=== PATIENT | male | born 1995 | race Caucasian/White ===

== ENCOUNTER 2019-07-30 23:57 | Emergency (ER) | payer BC ==
--- NOTE | 2019-07-31 00:15 | ED Physician Documentation ---
PD HPI SKIN - Stated complaint Stated Complaint: BUMP ON TRUNK - Chief complaint Chief Complaint: Wound - History obtained from History obtained from: Patient - History of Present Illness Timing - onset: How many days ago (several) Timing - duration: Days Timing - details: Gradual onset, Still present (has noted some tenderness, swelling, mild redness in tailbone area c/w pilonidal cyst he had in the past. Had I&D of it in the past. Pain worse today.) Location: Other (tailbone area) Associated symptoms: No: Fever, Myalgias, N/V/D Similar symptoms before: Diagnosis (pilonidal cyst with infection) Recently seen: Not recently seen Review of Systems Constitutional: denies: Fever, Chills GI: denies: Abdominal Pain, Nausea, Vomiting, Constipation, Diarrhea PD PAST MEDICAL HISTORY - Past Medical History Cardiovascular: None Respiratory: None Neuro: None Endocrine/Autoimmune: None - Present Medications Home Medications: Ambulatory Orders Medication Instructions Recorded Confirmed Naproxen 500 mg PO BID #20 tablet 07/31/19 Oxycodone HCl/Acetaminophen 1 - 2 each PO Q6H PRN #14 tablet 07/31/19 [Percocet 5-325 mg Tablet] Sulfamethox/Trimeth 800/160 1 each PO BID #14 tablet 07/31/19 [Bactrim Ds 800/160] - Allergies Allergies/Adverse Reactions: Allergies Allergy/AdvReac Type Severity Reaction Status Date / Time No Known Drug Allergies Allergy Verified 07/31/19 00:07 PD ED PE NORMAL - Vitals Vital signs reviewed: Yes - General General: Alert and oriented X 3, Well developed/nourished, Other (appears uncomfortable due to tailbone pain. ) - Abdomen Abdomen: Soft, Non tender - Back Back: Other (he is tender at coccygeal area with mild swelling, redness and marked tenderness right of midline just at upper gluteal. No perirectal swelling nor tender. Bedside U/S by me showed local swelling with minimal area of fluid localized there (1-2 mm). ) - Derm Derm: Warm and dry. No: Normal color (redness of skin locally at tender area. ) Results - Vitals Vitals: Vital Signs - 24 hr 07/31/19 07/31/19 07/31/19 00:04 00:16 00:20 Temperature 36.6 C Heart Rate 78 Respiratory 18 16 17 Rate Blood Pressure 178/83 H O2 Saturation 99 07/31/19 01:43 Temperature Heart Rate 65 Respiratory 18 Rate Blood Pressure 155/82 H O2 Saturation 98 Oxygen O2 Source Room air PD MEDICAL DECISION MAKING - ED course Complexity details: considered differential (at this time, appears local swelling with some cellulitic changes but no fluid collection (1-2 mm by bedside U/S). No cause for I&D at this time. ), d/w patient Departure - Departure Disposition: Home, Self Care Clinical Impression: Pilonidal cyst with abscess Condition: Stable Record reviewed to determine appropriate education?: Yes Instructions: ED Cyst Pilonidal Infec Abx Only Follow-Up: LUIS MISTRY ARNP [Primary Care Provider] - Prashanth Bauer MD [Provider Admit Priv/Credential] - Prescriptions: Naproxen 500 mg PO BID #20 tablet Oxycodone HCl/Acetaminophen [Percocet 5-325 mg Tablet] 1 - 2 each PO Q6H PRN #14 tablet PRN Reason: pain Sulfamethox/Trimeth 800/160 [Bactrim Ds 800/160] 1 each PO BID #14 tablet Comments: Warm moist towels or soaking foot the area to promote good blood flow and help fight off the infection. Anti-inflammatory such as naproxen twice daily. To that add Tylenol or oxycodone as needed for pain. Bactrim antibiotic twice daily for a week. Right now I see inflammation in the area without any localized pocket of fluid on the bedside ultrasound. It may develop some localized fluid that needs draining but at this point I think we can treated adequately with oral antibiotics anti-inflammatories and pain medicine. Recheck if not improving well over the next couple of days and return if worsening. Subsequently can follow-up with general surgery regarding whether to have excision of the cyst and scar area to reduce the chance of repeated infections. Forms: Activity restrictions Discharge Date/Time: 07/31/19 01:53
[2019-07-31] MEDS ORDERED: oxyCODONE 5 MG TABLET PO STA (00:35)
[2019-07-31] MEDS ORDERED: SULFAMETH/TRIMETH DS 800/160 MG TABLET PO STA (00:35)
[2019-07-31] MEDS ORDERED: KETOROLAC 30 MG/ML VIAL IM STA (00:35)
[2019-07-31] MEDS ORDERED: ACETAMINOPHEN 325 MG TABLET PO STA (00:35)
[2019-07-31] MEDS ORDERED: oxyCODONE/ACET 5/325 Prepack 4 PO STA (01:13)
[2019-07-31 01:44] VITALS: BP 155/82
== END 2019-07-31 01:53 | disposition home or self-care (01) ==
LOC: ED 23:57
DX: L05.01 Pilonidal cyst with abscess (principal)
CPT/HCPCS: 10080; 96372; 99283; 99284; A9270; J1170

== ENCOUNTER 2020-09-08 13:03 | Outpatient (CLI) | payer MEDICAID ==
[2020-09-08] MEDS ORDERED: BUFFERED LIDOCAINE 10 ML SYRINGE ONE (13:25)
[2020-09-08] MEDS ORDERED: GADOBUTROL 7.5 MMOL/7.5 ML VIAL ONE (13:26)
[2020-09-08] MEDS ORDERED: BUFFERED LIDOCAINE 10 ML SYRINGE IU ONE (14:26)
[2020-09-08] MEDS ORDERED: iohexoL-240 10 ML VIAL IVP ONE (14:27)
[2020-09-08] MEDS ORDERED: GADOBUTROL 7.5 MMOL/7.5 ML VIAL IVP ONE (14:28)
--- NOTE | 2020-09-08 15:00 | XRAY Report ---
TECHNIQUE: PROCEDURE: Arthrogram Needle Placement INDICATIONS: RIGHT ROTATOR CUFF SPRAIN CONTRAST: CONTRAST: gadavist FLUOROSCOPY TIME: FLUORO TIME: 0.3min and NUMBER IMAGES: 3 TECHNIQUE: The indications, alternatives, benefits, risks, and complications of the procedure were explained to the patient. Written informed consent was obtained and placed in the chart. The shoulder was examin ed fluoroscopically and a site for needle placement chosen for entry into the glenohumeral joint from an anterior approach. The skin was prepped and draped in the usual fashion, and 1% lidocaine infilt rated from skin down to joint capsule. A spinal needle was inserted into the glenohumeral joint, and a small amount of iodinated contrast media injected to confirm intra-articular placement of the need le tip. This was followed by approximately 12 mL dilute solution of a gadolinium containing MR contr ast agent. The needle was removed and a dressing was applied. The patient was given postprocedural instructions and sent to the MR suite for MR imaging. FINDINGS: A single fluoroscopic spot image demonstrates intra-articular location of injected iodinated contrast . IMPRESSION: Successful fluoroscopically guided administration of dilute Gadolinium solution into the right should er joint for MR arthrogram. Reviewed by: Chacho Mariee MD on 09/08/2020 2:59 PM PST Approved by: Chacho Mariee MD on 09/08/2020 2:59 PM PST Station ID: [id number]
--- NOTE | 2020-09-08 17:26 | MRI Report ---
PROCEDURE: Arthrogram Shoulder RT INDICATIONS: RIGHT ROTATOR CUFF SPRAIN CONTRAST: 12 mL of diluted intra-articular gadolinium contrast. TECHNIQUE: After the administration of 12 mL of dilute intra-articular Gadolinium contrast, oblique coronal T1 a nd T2 spin echo with fat saturation, oblique sagittal T1 spin echo with and without fat saturation, o blique sagittal T2 fast spin echo with fat saturation, axial T1 spin echo with fat saturation through the shoulder. COMPARISON: None. FINDINGS: Image quality: Excellent. Rotator cuff: Distal supraspinatus tendinosis at its insertion on humeral head is seen. Very low-grad e articular surface partial-thickness tear cannot be excluded. Distal infraspinatus and subscapularis tendons are grossly intact. No rotator cuff muscle atrophy on sagittal images. Bones and bursae: No bone marrow contusions or fractures. Very mild acromioclavicular joint osteoart hritic changes are seen with small downward osteophyte formation depressing on musculotendinous junct ion of supraspinatus. The acromion demonstrates conventional anatomy, without an os acromiale. Capsule and soft tissues: The labrum and glenohumeral ligaments appear intact. The long head of the biceps tendon demonstrates normal location and morphology. The rotator interval appears normal, wit hout fibrosis. The coracohumeral ligament is of normal thickness. No intra-articular bodies. IMPRESSION: 1. Tendinosis and possible very low-grade articular surface partial-thickness tear involving distal s upraspinatus. No full-thickness rotator cuff tendon rupture. 2. Very mild acromioclavicular joint osteophytic changes. 3. No evidence of focal labral tear. Reviewed by: Nabeel Calderon MD on 09/08/2020 5:25 PM PST Approved by: Nabeel Calderon MD on 09/08/2020 5:25 PM PST Station ID: [id number]
== END 2020-09-08 13:04 | disposition home or self-care (01) ==
LOC: DI 13:03
PROVIDERS: ATTEND Nurse Practitioner Family
DX: S43.421A Sprain of right rotator cuff capsule, initial encounter (principal)
CPT/HCPCS: 23350; 73222; 77002; A9585; Q9966